=== PATIENT | male | born 1975 | race African-American/Black ===

== ENCOUNTER 2019-04-07 12:50 | Emergency (ER) | payer MEDICAID, OTHER ==
[~2019-04-07] VITALS: Ht 167.6 cm; Wt 72.6 kg
[2019-04-07] MEDS ORDERED: SODIUM CHLORIDE 0.9% 1,000 ML IV ONE ×2 (13:12)
[2019-04-07] MEDS ORDERED: KETOROLAC TROMETH 30 MG/ML 1ML VIAL IV ONE (13:45)
[2019-04-07 14:24] LABS: Basophils # (auto) 0.1 uL; Basophils % (auto) 0.3 % (0.0-2.0); Eosinophils # (auto) 0.2 uL; Eosinophils % (auto) 0.8 % (0.0-7.0); Hematocrit 46.2 % (41.0-53.0); Hemoglobin 15.4 g/dL (13.5-17.5); Lymphocytes # (auto) 2.4 uL; Lymphocytes % (auto) 10.4 % (10.0-50.0); Mean Corpuscular Hgb Conc. 33.3 g/dL (32.0-36.0); Mean Corpuscular Volume 98.8 fL (80.0-100.0); Monocytes # (auto) 2.3 uL; Neutrophils # (auto) 17.9 uL; Neutrophils % (auto) 78.5 % (37.0-80.0); Nucleated Red Blood Cells % 0.1 %; Platelet Count (auto) 236 10^3/uL (140-450); Red Blood Cells 4.67 10^6/uL (4.5-5.90); Red Cell Distribution Width 13.4 % (11.8-14.3); White Blood Cell 22.8 10^3/uL (4.4-10.8)
[2019-04-07] MEDS ORDERED: LEVETIRACETAM INJ 1,000 MG in D5W 5% 100 ML IV ONE (14:30)
[2019-04-07 14:38] LABS: Alanine Aminotransferase 34 U/L (16-61); Albumin 3.9 g/dL (3.4-5.0); Anion Gap 10 (5-15); Aspartate Aminotransferase 47 U/L (15-37); BUN/Creatinine Ratio 6.9; Blood Urea Nitrogen 7 mg/dL (7-18); Calcium 8.8 mg/dL (8.5-10.1); Carbon Dioxide 24 mmol/L (21-32); Chloride 107 mmol/L (98-107); GFR African American 102 mL/min; GFR Non-African American 84 mL/min; Glucose 129 mg/dL (74-106); Potassium 3.7 mmol/L (3.5-5.1); Sodium 141 mmol/L (136-145)
[2019-04-07 14:42] LABS: INR 0.93 (0.9-1.15); Partial Thromboplastin Time 23.4 sec (23.64-32.05)
[2019-04-07 14:43] LABS: Alkaline Phosphatase 63 U/L (45-117); Bilirubin, Total 0.4 mg/dL (0.2-1.0); Total Protein 7.4 g/dL (6.4-8.2)
[2019-04-07 14:50] VITALS: BP 150/78
[2019-04-07 14:51] LABS: Amphetamine Screen, Urine POSITIVE (NEGATIVE); Barbiturate Scree,Urine NEGATIVE (NEGATIVE); Benzodiazephine Screen, Urine NEGATIVE (NEGATIVE); Cannabinoid Screen, Urine POSITIVE (NEGATIVE); Cocaine Screen, Urine NEGATIVE (NEGATIVE); Opiate Scree,Urine NEGATIVE (NEGATIVE); Phencyclidine Screen, Urine NEGATIVE (NEGATIVE)
[2019-04-07 14:53] LABS: Urine Bacteria NONE SEEN /hpf (None Seen); Urine Blood Negative /uL (Negative); Urine Mucus FEW (None Seen); Urine Specific Gravity 1.017 (1.001-1.035); Urine WBC 1 /hpf (0 - 3)
== END 2019-04-07 15:15 | disposition short-term general hospital (02) ==
LOC: EDBD 12:50 → ER 12:50
DX: S06.300A Unspecified focal traumatic brain injury without loss of consciousness, initial encounter (principal); S02.81XA Fracture of other specified skull and facial bones, right side, initial encounter for closed fracture; F17.210 Nicotine dependence, cigarettes, uncomplicated; F12.10 Cannabis abuse, uncomplicated; R42 Dizziness and giddiness; W19.XXXA Unspecified fall, initial encounter; Y93.89 Activity, other specified; Y92.89 Other specified places as the place of occurrence of the external cause; Y99.8 Other external cause status
CPT/HCPCS: 36415; 51702; 70450; 70486; 71250; 72125; 80053; 80307; 81001; 84484; 85025; 85610; 85730; 96361; 96374; 96375; 99291; J1885; J1953; J7060; 96365

== ENCOUNTER 2020-02-28 14:54 | Emergency (ER) | payer MEDICAID ==
[~2020-02-28] VITALS: Ht 177.8 cm; Wt 72.1 kg
[2020-02-28 19:04] VITALS: BP 143/78
== END 2020-02-28 20:28 | disposition home or self-care (01) ==
LOC: ER 14:54
DX: S92.401A Displaced unspecified fracture of right great toe, initial encounter for closed fracture (principal); W22.8XXA Striking against or struck by other objects, initial encounter; Y93.89 Activity, other specified; Y92.89 Other specified places as the place of occurrence of the external cause; Y99.8 Other external cause status
CPT/HCPCS: 73630

== ENCOUNTER 2020-03-21 09:04 | Emergency (ER) | payer MEDICAID ==
[~2020-03-21] VITALS: Ht 175.3 cm; Wt 72.6 kg
[2020-03-21 09:10] VITALS: BP 144/86
[2020-03-21] MEDS ORDERED: cefTRIAXone SOD 1,000 MG VL IM ONE (11:15)
[2020-03-21] MEDS ORDERED: IBUPROFEN 800 MG TAB PO ONE (11:15)
== END 2020-03-21 11:35 | disposition home or self-care (01) ==
LOC: ER 09:04
DX: N45.1 Epididymitis (principal); N43.3 Hydrocele, unspecified
CPT/HCPCS: 76870; 81002; 96372; 99284; J0696

== ENCOUNTER 2020-09-25 16:22 | Emergency (ER) | payer MEDICAID ==
[~2020-09-25] VITALS: Ht 177.8 cm; Wt 74.8 kg
[2020-09-25 16:48] VITALS: BP 150/96
[2020-09-25] MEDS: IBUPROFEN 600 MG TAB PO ONE (17:09)
== END 2020-09-25 17:24 | disposition home or self-care (01) ==
LOC: ER 16:22
DX: K40.90 Unilateral inguinal hernia, without obstruction or gangrene, not specified as recurrent (principal); R03.0 Elevated blood-pressure reading, without diagnosis of hypertension; F17.210 Nicotine dependence, cigarettes, uncomplicated